=== PATIENT | female | born 1945 | race Asian ===

== ENCOUNTER 2017-09-28 15:19 | Outpatient (CLI) | payer MEDICARE, OTHER ==
--- NOTE | 2017-10-03 16:35 | Mammography Report ---
DIGITAL SCREENING MAMMOGRAM: 09/28/2017 CLINICAL INDICATION: A 72-year-old with history of benign right breast biopsy for screening. COMPARISON: 07/2016, 04/2014, 03/2012, 04/2010 TECHNIQUE: Routine CC and MLO projections were obtained of the breasts. FINDINGS: The breasts again demonstrate heterogeneously dense fibroglandular parenchyma bilaterally. Coarse and punctate, typically benign calcifications are present. No suspicious masses, clustered microcalcifications, or regions of architectural distortion are identified. IMPRESSION: BENIGN FINDINGS. RECOMMENDATION: Routine annual screening unless otherwise clinically indicated. BIRADS CATEGORY 2 - BENIGN FINDINGS. STANDARD QUALIFYING STATEMENTS 1. This examination was reviewed with the aid of Computer-Aided Detection (CAD). 2. A negative or benign imaging report should not delay biopsy if clinically suspicious findings are present. Consider surgical consultation if warranted. More than 5% of cancers are not identified by i maging. 3. Dense breasts may obscure an underlying neoplasm. JOB #: [id number] EXT JOB #:[id number]
== END 2017-09-28 15:20 | disposition home or self-care (01) ==
LOC: DI 15:19
PROVIDERS: ATTEND Family Medicine
DX: Z12.31 Encounter for screening mammogram for malignant neoplasm of breast (principal)
CPT/HCPCS: 77067

== ENCOUNTER 2017-10-10 16:40 | Emergency (ER) | payer MEDICARE, OTHER ==
[2017-10-10 17:43] LABS: BASOPHILS % (AUTO) 0.1 %; EOSINOPHILS % (AUTO) 0.1 %; HCT - HEMATOCRIT 44.8 % (37.0-47.0); HGB - HEMOGLOBIN 14.4 g/dL (12.0-16.0); LYMPHOCYTES # (AUTO) 0.3 10^3/uL (1.5-3.5); MEAN CORPUSCULAR HEMOGLOBIN 28.6 pg (27.0-31.0); MEAN CORPUSCULAR HGB CONC 32.2 g/dL (32.0-36.0); MEAN PLATELET VOLUME 6.6 fL (7.9-10.8); MONOCYTES # (AUTO) 0.2 10^3/uL (0.0-1.0); MONOCYTES % (AUTO) 3.1 %; NEUTROPHILS # (AUTO) 6.5 10^3/uL (1.5-6.6); NEUTROPHILS % (AUTO) 92.7 %; RED BLOOD COUNT 5.03 10^6/uL (4.20-5.40); RED CELL DISTRIBUTION WIDTH 13.1 % (12.0-15.0)
[2017-10-10 17:54] LABS: NP AUTO DIFFERENTIAL? NO; NP MAN DIFFERENTIAL? YES
[2017-10-10 17:55] LABS: ALBUMIN/GLOBULIN RATIO 1.3 (1.0-2.2); BILIRUBIN,TOTAL 0.7 mg/dL (0.2-1.0); CALCIUM 8.8 mg/dL (8.5-10.3); CREATININE 0.8 mg/dL (0.4-1.0); POTASSIUM 3.5 mmol/L (3.5-5.0); TOTAL PROTEIN 8.4 g/dL (6.7-8.2)
--- NOTE | 2017-10-10 18:56 | ED Physician Documentation ---
PD HPI NVD - Stated complaint Stated Complaint: VOMITING - Chief complaint Chief Complaint: Abd Pain - History obtained from History obtained from: Patient - History of Present Illness Timing - onset: Last night Timing - duration: Hours Timing - details: Abrupt onset, Still present Associated symptoms: Abdominal pain (upper abd/epigastric area). No: Fever, Near syncope / syncope, Weight loss Contributing factors: No: Sick contact, Bad food, Travel, Recent antibiotics Improved by: Vomiting. No: Eating Worsened by: Eating Similar symptoms before: Has not had sx before Recently seen: Not recently seen Review of Systems Constitutional: denies: Fever, Chills Nose: denies: Rhinorrhea / runny nose, Congestion Throat: denies: Sore throat Cardiac: denies: Chest pain / pressure Respiratory: denies: Dyspnea, Cough GI: reports: Abdominal Pain, Nausea, Vomiting, Diarrhea : denies: Dysuria, Frequency Neurologic: reports: Headache. denies: Near syncope, Altered mental status PD PAST MEDICAL HISTORY - Past Medical History Past Medical History: Yes Cardiovascular: None Respiratory: None Endocrine/Autoimmune: None GI: GERD, Chronic constipation : None HEENT: Chronic vision loss, Other Psych: None Musculoskeletal: Osteoarthritis Derm: None - Past Surgical History Past Surgical History: Yes General: Colonoscopy, Other /NETWORK APPLICATIONS SPECIALIST: section, Other - Present Medications Home Medications: Ambulatory Orders Medication Instructions Recorded Confirmed Diphenoxylate HCl/Atropine 1 each PO Q6H PRN #12 tablet 10/10/17 [Diphenoxylate-Atrop 2.5-0.025] Famotidine [Pepcid] 20 mg PO ONCE #15 tablet 10/10/17 Ondansetron Odt [Zofran] 4 mg TL Q6H PRN #15 tablet 10/10/17 - Allergies Allergies/Adverse Reactions: Allergies Allergy/AdvReac Type Severity Reaction Status Date / Time No Known Drug Allergies Allergy Verified 07/08/15 09:25 - Social History Does the pt smoke?: No Smoking Status: Never smoker PD ED PE NORMAL - Vitals Vital signs reviewed: Yes - General General: Alert and oriented X 3, Well developed/nourished - HEENT HEENT: PERRL, Ears normal, Pharynx benign - Neck Neck: Supple, no meningeal sign, No adenopathy - Cardiac Cardiac: RRR (mildly tachy) - Respiratory Respiratory: Clear bilaterally - Abdomen Abdomen: Normal bowel sounds, Soft, Non distended, No organomegaly, Other ( tender epigastric without guarding. ) - Female Female : Deferred - Rectal Rectal: Deferred - Back Back: No spinal TTP - Derm Derm: Normal color, Warm and dry - Extremities Extremities: No edema, No calf tenderness / cord - Neuro Neuro: Alert and oriented X 3, No motor deficit, Normal speech Results - Vitals Vitals: Oxygen O2 Source Room air - Labs Labs: Laboratory Tests 10/10/17 10/10/17 17:38 17:38 WBC 7.0 RBC 5.03 Hgb 14.4 Hct 44.8 MCV 89.0 MCH 28.6 MCHC 32.2 RDW 13.1 Plt Count 231 MPV 6.6 L Neut # 6.5 Lymph # 0.3 L [place] # 0.2 Eos # 0.0 Baso # 0.0 Absolute Nucleated RBC 0.00 Band Neuts % (Manual) Not Reportable Abnorm Lymph % (Manual) Not Reportable Nucleated RBC % 0.0 Neutrophils # (Manual) [employer] Lymphocytes # (Manual) Not Reportable Monocytes # (Manual) Not Reportable Eosinophils # (Manual) Not Reportable Basophils # (Manual) Not Reportable Differential Comment MANUAL=AUTO DIFF Sodium 138 Potassium 3.5 Chloride 102 Carbon Dioxide 25 Anion Gap 11.0 BUN 23 H Creatinine 0.8 Estimated GFR (MDRD) 71 L Glucose 136 H Calcium 8.8 Total Bilirubin 0.7 AST 32 ALT 27 Alkaline Phosphatase 59 Total Protein 8.4 H Albumin 4.7 Globulin 3.7 Albumin/Globulin Ratio 1.3 Lipase 23 PD MEDICAL DECISION MAKING - ED course Complexity details: reviewed results, re-evaluated patient (improved with meds and fluids. Consider gastritis. Labs and U/S are okay. ), considered differential, d/w patient Departure - Departure Disposition: 01 Home, Self Care Clinical Impression: Nausea vomiting and diarrhea, Dehydration, Epigastric abdominal pain Condition: Stable Record reviewed to determine appropriate education?: Yes Instructions: ED Nausea Vomiting, ED Epigastric Pain [facility] Follow-Up: Carlos Aguilar DO [Primary Care Provider] - Prescriptions: Diphenoxylate HCl/Atropine [Diphenoxylate-Atrop 2.5-0.025] 1 each PO Q6H PRN # 12 tablet PRN Reason: Diarrhea Famotidine [Pepcid] 20 mg PO ONCE #15 tablet Ondansetron Odt [Zofran] 4 mg TL Q6H PRN #15 tablet PRN Reason: Nausea / Vomiting Comments: Small frequent fluids to maintain hydration. [place] food initially such as rice and breads and cereal. Simple soups are good 2. Progress food as tolerated. Your stomach will be irritated for several days or more so try 92 fall or large of meals. I would suggest an acid reducing medicine such as famotidine for 1-2 weeks to keep the stomach acids down and help with healing. This sounds like a viral "stomach flu" and likely will just be 1-2 days of illness. So presumably is mostly done at this point. Use ondansetron if needed for persistent nausea. Diphenoxylate if needed for diarrhea. Hydrocodone can be used for diarrhea and pain as well. Recheck if not better over the next couple of days and return sooner if worse again. Discharge Date/Time: 10/10/17 22:24
[2017-10-10] MEDS ORDERED: ONDANSETRON 4 MG/2 ML VIAL IVP STA (19:09)
[2017-10-10] MEDS ORDERED: SODIUM CHLORIDE 0.9% 1,000 ML IV ONE ×2 (19:09→20:33)
[2017-10-10] MEDS ORDERED: KETOROLAC 15 MG/ML VIAL IVP STA (19:10)
[2017-10-10] MEDS ORDERED: FAMOTIDINE 20 MG/50 ML 50 ML IV ONE ×2 (19:10→19:26)
[2017-10-10] MEDS ORDERED: MAG HYDROX/AL HYDROX/SIMETH 30 ML UDC PO STA (19:10)
[2017-10-10] MEDS ORDERED: DIPHENOX/ATROPINE 2.5/0.025 MG TABLET PO STA (19:10)
[2017-10-10] MEDS ORDERED: KETOROLAC 15 MG/ML VIAL ONE (19:25)
[2017-10-10] MEDS ORDERED: DIPHENOX/ATROPINE 2.5/0.025 MG TABLET PO ONE (19:25)
[2017-10-10] MEDS ORDERED: MAG HYDROX/AL HYDROX/SIMETH 30 ML UDC ONE ×2 (19:26)
[2017-10-10] MEDS ORDERED: ONDANSETRON 4 MG/2 ML VIAL ONE (19:26)
[2017-10-10] MEDS ORDERED: HYDROmorphone 1 MG/ML SYRINGE IVP STA (21:12)
[2017-10-10] MEDS ORDERED: HYDROmorphone 1 MG/ML SYRINGE ONE (21:35)
--- NOTE | 2017-10-10 21:50 | Ultrasound Preliminary Report ---
Exam: US ABDOMEN LIMITED IMPRESSION: Normal. No cholelithiasis or cholecystitis. [facility] SITE ID: [id number]
--- NOTE | 2017-10-10 21:57 | Ultrasound Report ---
EXAM: ABDOMEN ULTRASOUND LIMITED, RUQ EXAM DATE: 10/10/2017 08:38 PM. CLINICAL HISTORY: Upper abdominal pain and vomiting today. COMPARISON: No prior ultrasound. CT abdomen and pelvis 05/15/2015. TECHNIQUE: Real-time scanning was performed with static images obtained. FINDINGS: Liver: Normal in size and echotexture. 16.4 cm. Main portal vein flow: Hepatopetal. Gallbladder: Normal. No stones, wall thickening, or sonographic Andrade's sign. Biliary System: CBD measures 6.0 mm. No intrahepatic or extrahepatic ductal dilatation. Other: Normal right kidney. No free fluid. IMPRESSION: Normal. No cholelithiasis or cholecystitis. [facility] Referring Provider Line: [phone] SITE ID: [id number]
[2017-10-10] MEDS ORDERED: HYDROcod/ACET 5/325 Prepack 6 PO ONE (22:00)
[2017-10-10] MEDS ORDERED: ONDANSETRON ODT 4 MG Prepack 2 TL PRN (22:01)
[2017-10-10 22:16] VITALS: BP 112/56
== END 2017-10-10 22:24 | disposition home or self-care (01) ==
LOC: ED 16:40
DX: E86.0 Dehydration (principal); K21.9 Gastro-esophageal reflux disease without esophagitis; M19.90 Unspecified osteoarthritis, unspecified site
CPT/HCPCS: 36415; 76705; 80053; 83690; 85025; 93005; 96361; 96365; 96375; 99283; 99284; A9270; J1170

== ENCOUNTER 2018-03-14 17:31 | Outpatient (CLI) | payer MEDICARE, OTHER ==
[2018-03-14 18:14] LABS: ALBUMIN 4.3 g/dL (3.2-5.5); ALBUMIN/GLOBULIN RATIO 1.1 (1.0-2.2); BILIRUBIN,TOTAL 0.8 mg/dL (0.2-1.0); CALCIUM 9.1 mg/dL (8.5-10.3); CREATININE 0.7 mg/dL (0.4-1.0); TOTAL PROTEIN 8.2 g/dL (6.7-8.2)
[2018-03-14 18:17] LABS: BASOPHILS % (AUTO) 0.8 %; EOSINOPHILS # (AUTO) 0.2 10^3/uL (0.0-0.7); EOSINOPHILS % (AUTO) 4.7 %; HGB - HEMOGLOBIN 13.4 g/dL (12.0-16.0); LYMPHOCYTES # (AUTO) 1.6 10^3/uL (1.5-3.5); LYMPHOCYTES % (AUTO) 40.5 %; MEAN CORPUSCULAR HGB CONC 31.5 g/dL (32.0-36.0); MEAN CORPUSCULAR VOLUME 89.1 fL (81.0-99.0); MEAN PLATELET VOLUME 6.5 fL (7.9-10.8); MONOCYTES # (AUTO) 0.3 10^3/uL (0.0-1.0); MONOCYTES % (AUTO) 6.9 %; NEUTROPHILS # (AUTO) 1.9 10^3/uL (1.5-6.6); NEUTROPHILS % (AUTO) 47.1 %; PLT - PLATELET COUNT 231 10^3/uL (130-450); RED BLOOD COUNT 4.77 10^6/uL (4.20-5.40); WHITE BLOOD COUNT 4.1 x10^3/uL (4.8-10.8)
--- NOTE | 2018-03-15 09:31 | XRAY Report ---
ACUTE ABDOMEN SERIES: 03/14/2018 CLINICAL INDICATION: Pain, bloody stools, bloating. FINDINGS: Supine and upright views of the abdomen and a frontal view of the chest were obtained. The bowel gas pattern is normal. No free intraperitoneal gas is seen. No abnormal calcifications are appreciated overlying either renal shadow. The cardiac silhouette is within normal limits. The lungs are hyperinflated, suggestive of COPD. No focal infiltrate, effusion, or pneumothorax is present. IMPRESSION: NO EVIDENCE OF BOWEL OBSTRUCTION OR PERFORATION. NO EVIDENCE OF ACUTE CARDIOPULMONARY DISEASE. TD: 03/15/2018 09:31 MTDD
== END 2018-03-14 17:32 | disposition home or self-care (01) ==
LOC: DI 17:31
PROVIDERS: ATTEND Family Medicine
DX: K92.1 Melena (principal); R10.30 Lower abdominal pain, unspecified
CPT/HCPCS: 36415; 74022; 80053; 85025

== ENCOUNTER 2019-02-26 10:56 | Outpatient (CLI) | payer MEDICARE ==
--- NOTE | 2019-02-26 12:17 | XRAY Report ---
Reason: PAIN IN UNSPECIFIED JOINT Procedure Date: 02/26/2019 Accession Number: [id number] / [id number] Procedure: XR - Shoulder 3 View LT CPT Code: FULL RESULT: EXAM: LEFT SHOULDER RADIOGRAPHY EXAM DATE: 02/26/2019 11:21 AM. CLINICAL HISTORY: Pain in unspecified joint. COMPARISON: None. TECHNIQUE: 3 views. FINDINGS: Bones: Normal. No fracture or bone lesion. Joints: There are degenerative changes at the AC joint and there is apparent elevation of the clavicle in relation to the acromion, difficult to measure due to projection. The coracoclavicular interval appears preserved. The glenohumeral relationship is preserved. Soft tissues: The visualized hemithorax is unremarkable. No soft tissue swelling. IMPRESSION: Question AC joint injury, suboptimal projection. [facility]
== END 2019-02-26 10:57 | disposition home or self-care (01) ==
LOC: DI 10:56
PROVIDERS: ATTEND Internal Medicine
DX: M25.512 Pain in left shoulder (principal)

== ENCOUNTER 2019-03-05 17:02 | Outpatient (CLI) | payer MEDICARE ==
--- NOTE | 2019-03-05 20:18 | Ultrasound Report ---
Reason: UNSPECIFIED ABDOMINAL PAIN Procedure Date: 03/05/2019 Accession Number: [id number] / [id number] Procedure: US - Pelvic w/Transvaginal CPT Code: FULL RESULT: EXAM: PELVIC ULTRASOUND EXAM DATE: 03/05/2019 05:16 PM. CLINICAL HISTORY: UNSPECIFIED ABDOMINAL PAIN. COMPARISON: None. TECHNIQUE: Realtime transabdominal pelvic scan performed to identify the uterus and adnexa and as an overview of other pelvic structures, followed by transvaginal scan to provide greater detail of the uterus and adnexa, with static image documentation. FINDINGS: Uterus: 6.1 x 3 x 5.6 cm, volume 53.6 cc. Anteverted position. Normal overall size and echotexture. Masses: None. Endometrium: 6.6 mm. Normal. Cervix: Subcentimeter nabothian cysts seen in the cervix. Right Ovary: 1.9 x 1.1 x 2.7 cm, volume 3 cc. Normal echotexture and blood flow. Left Ovary: Not seen Free Fluid: None. Other: None. IMPRESSION: Normal uterus and right ovary. Left ovary not visualized. [facility]
--- NOTE | 2019-03-06 07:26 | Ultrasound Report ---
Reason: UNSPECIFIED ABDOMINAL PAIN Procedure Date: 03/05/2019 Accession Number: [id number] / [id number] Procedure: US - Abdomen Complete CPT Code: FULL RESULT: EXAM: ABDOMEN ULTRASOUND EXAM DATE: 03/05/2019 05:56 PM. CLINICAL HISTORY: Abdominal pain. COMPARISON: 10/10/2017. TECHNIQUE: Real-time scanning was performed with static images obtained. FINDINGS: Liver: Parenchyma is mildly echogenic with respect to the right kidney. No focal masses or abnormal blood flow. 16.3 cm. Main portal vein flow: Hepatopetal. Gallbladder: Normal. No stones, wall thickening, or sonographic Andrade's sign. Biliary System: Common bile duct measures 4 mm. No intrahepatic or extrahepatic ductal dilatation. Pancreas: Visualized portion is unremarkable. Kidneys: Right: 9.5 cm longitudinally. Normal. No contour-deforming mass, stones, or hydronephrosis. Left: 10.2 cm longitudinally. Normal. No contour-deforming mass, stones, or hydronephrosis. Spleen: 8.1 cm. Normal in size and echotexture. Aorta and Inferior Vena Cava: Unremarkable. Other: None. IMPRESSION: 1. Normal gallbladder. No clear etiology for abdominal pain. 2. Mildly fatty infiltrated liver noted. [facility]
== END 2019-03-05 17:03 | disposition home or self-care (01) ==
LOC: DI 17:02
PROVIDERS: ATTEND Internal Medicine
DX: R10.9 Unspecified abdominal pain (principal); K76.0 Fatty (change of) liver, not elsewhere classified
CPT/HCPCS: 76700; 76830; 76856

== ENCOUNTER 2019-03-06 09:47 | Outpatient (CLI) | payer MEDICARE ==
--- NOTE | 2019-03-06 23:09 | XRAY Report ---
Reason: LOW BACK PAIN Procedure Date: 03/06/2019 Accession Number: [id number] / [id number] Procedure: XR - Lumbar Spine 2 View CPT Code: FULL RESULT: EXAM: LUMBOSACRAL SPINE RADIOGRAPHY EXAM DATE: 03/06/2019 10:17 AM. CLINICAL HISTORY: LOW BACK PAIN. COMPARISONS: CT scan from 05/15/2015. TECHNIQUE: 3 views. FINDINGS: Alignment: Mild levoscoliosis is present, centered at L3. Bones: Five uro-usn-xdxopox lumbar vertebral bodies are present. No fractures or bone lesions. Disks and facets: Moderate osteoarthritic changes present. Sacroiliac Joints: Unremarkable. Soft Tissues: Normal. The visualized bowel gas pattern is normal. IMPRESSION: Moderate multilevel osteoarthritic changes with mild levoscoliosis without evidence of acute fracture. [facility]
== END 2019-03-06 09:48 | disposition home or self-care (01) ==
LOC: DI 09:47
PROVIDERS: ATTEND Internal Medicine
DX: M51.36 Other intervertebral disc degeneration, lumbar region (principal); M47.9 Spondylosis, unspecified; M41.86 Other forms of scoliosis, lumbar region
CPT/HCPCS: 72100

== ENCOUNTER 2019-03-06 09:48 | Outpatient (CLI) | payer MEDICARE ==
--- NOTE | 2019-03-06 13:33 | Mammography Report ---
Reason: SCREENING MAMMO Procedure Date: 03/06/2019 Accession Number: [id number] / [id number] Procedure: ANEL - Screening Mammo w/Octavio CPT Code: FULL RESULT: EXAM: Screening Mammo w/Octavio DATE: 03/06/2019 10:45 AM CLINICAL HISTORY: Routine screening. History of benign right breast biopsy. TECHNIQUE: (B) - Bilateral CC and MLO views were obtained. COMPARISON: 09/28/2017, 07/28/2016 PARENCHYMAL PATTERN: (A) - The breasts demonstrate scattered fibroglandular densities bilaterally. FINDINGS: There is no significant interval change on the right. Well-circumscribed nodule in the 6:00 position 3.5 cm from the nipple is unchanged. There are no suspicious masses, calcifications, or areas of distortion. On the left there has been a slight increase in size in a small nodular density in the 1:00 position 2 cm from the nipple, most likely a cyst. Suggest further evaluation by ultrasound. Otherwise no suspicious masses, calcifications, skin thickening, or areas of distortion. IMPRESSION: Incomplete examination. BI-RADS category 0. Needs left breast ultrasound. Negative right breast. RECOMMENDATION: (ADDUS) - Targeted ultrasound recommended. Left breast. BI-RADS CATEGORY: (0) - Incomplete Examination - need additional evaluation. STANDARD QUALIFYING STATEMENTS: 1. This examination was not reviewed with the aid of Computer-Aided Detection (CAD). 2. A negative or benign imaging report should not preclude biopsy if clinically suspicious findings are present. 3. Dense breasts may obscure an underlying neoplasm. 4. This examination was reviewed with the aid of 3D breast imaging (tomosynthesis).
== END 2019-03-06 09:49 | disposition home or self-care (01) ==
LOC: DI 09:48
PROVIDERS: ATTEND Internal Medicine
DX: Z12.31 Encounter for screening mammogram for malignant neoplasm of breast (principal); R92.8 Other abnormal and inconclusive findings on diagnostic imaging of breast
CPT/HCPCS: 77063; 77067

== ENCOUNTER 2019-03-19 11:58 | Outpatient (CLI) | payer MEDICARE ==
--- NOTE | 2019-03-19 13:29 | Ultrasound Report ---
Reason: ABNORMAL MAMMOGRAM Procedure Date: 03/19/2019 Accession Number: [id number] / [id number] Procedure: US - Breast Unilateral Limited CPT Code: FULL RESULT: EXAM: Breast Unilateral Limited DATE: 03/19/2019 12:37 PM CLINICAL HISTORY: 9 mm oval mass recalled from screening exam, 03/06/2019 left breast TECHNIQUE: High-frequency linear transducer was utilized to perform real-time scanning. COMPARISON: Mammography 03/06/2019 through 02/04/2012 FINDINGS: Left breast: Targeted ultrasound at 1:00 2 cm from the nipple demonstrates a 9 mm simple cyst corresponding to mammographic finding recalled from screening. IMPRESSION: Left breast: Finding recalled from screening corresponds to simple cyst at ultrasound. Benign. BI-RADS Category 2. Recommend return to annual screening mammography. RECOMMENDATION: (ANNUAL) - Recommend routine annual screening mammography. BI-RADS CATEGORY: (1) - Negative.
== END 2019-03-19 11:59 | disposition home or self-care (01) ==
LOC: DI 11:58
PROVIDERS: ATTEND Internal Medicine
DX: N60.02 Solitary cyst of left breast (principal)
CPT/HCPCS: 76642

== ENCOUNTER 2019-03-29 10:08 | Outpatient (CLI) | payer MEDICARE ==
--- NOTE | 2019-03-29 12:20 | XRAY Report ---
Reason: COMPLEX REGIONAL PAIN SYNDROME I OF UNSPECIFIED UP Procedure Date: 03/29/2019 Accession Number: [id number] / [id number] Procedure: XR - Shoulder 3 View LT CPT Code: FULL RESULT: EXAM: LEFT SHOULDER RADIOGRAPHY EXAM DATE: 03/29/2019 10:22 AM. CLINICAL HISTORY: Complex regional pain syndrome. Left shoulder pain x months. COMPARISON: SHOULDER 3 VIEW LT 02/26/2019 11:12 AM. TECHNIQUE: 3 views. FINDINGS: Bones: Normal. No fracture or bone lesion. Joints: The glenohumeral and acromioclavicular joints are normally located with osteophytosis about the bony glenoid consistent with degenerative changes. Soft tissues: The visualized hemithorax is unremarkable. No soft tissue swelling. IMPRESSION: Degenerative changes as described. [facility]
== END 2019-03-29 10:09 | disposition home or self-care (01) ==
LOC: DI 10:08
PROVIDERS: ATTEND Internal Medicine
DX: M19.012 Primary osteoarthritis, left shoulder (principal)